=== PATIENT | male | born 1950 | race Caucasian/White ===

== ENCOUNTER 2018-12-23 13:57 | Emergency (ER) | payer MEDICARE, OTHER ==
[~2018-12-23] VITALS: Ht 185.4 cm; Wt 86.6 kg
[2018-12-23] MEDS ORDERED: SIMVASTATIN10 MG PO (14:14)
[2018-12-23] MEDS ORDERED: MOBIC15 MG PO (14:15)
[2018-12-23] MEDS ORDERED: PRILOSEC OTC20 MG PO (14:15)
[2018-12-23 14:56] VITALS: BP 129/76
== END 2018-12-23 14:58 | disposition home or self-care (01) ==
LOC: M.ERS 13:57
DX: S61.412A Laceration without foreign body of left hand, initial encounter (principal); M19.90 Unspecified osteoarthritis, unspecified site; E78.00 Pure hypercholesterolemia, unspecified; K21.9 Gastro-esophageal reflux disease without esophagitis; W22.8XXA Striking against or struck by other objects, initial encounter; Y92.89 Other specified places as the place of occurrence of the external cause; Y93.89 Activity, other specified; Y99.8 Other external cause status